=== PATIENT | female | born 1995 | race Caucasian/White ===

== ENCOUNTER 2019-10-31 18:57 | Observation (INO) | payer OTHER, SELFPAY ==
[2019-10-31 19:17] VITALS: BP 108/66; PULSE 89
[2019-10-31 19:30] VITALS: TEMP 37.7
[2019-10-31] MEDS: DEXTROSE 5%/LACTATED RINGERS 1,000 ML 999 ML IV CONT (19:58)
[2019-10-31] MEDS: FAMOTIDINE 20 MG/2 ML VIAL IV PUSH (19:59)
[2019-10-31 20:03] LABS: Basophils Percent Auto 0.2 % (0.2-1.2); Eosinophils Absolute Auto 0.2 K/mm3 (0-0.3); Eosinophils Percent Auto 2.7 % (0-4.4); Hematocrit 27.4 % (37.0-47.0); Hemoglobin 8.8 g/dL (12.0-15.0); Immature Granulocyte Absolute 0.07 K/mm3 (0.00-0.031); Immature Granulocyte Percent A 0.9 % (0-0.5); Lymphocytes Absolute Auto 1.42 K/mm3 (0.9-3.2); Lymphocytes Percent Auto 17.3 % (18.3-44.2); Mean Corpuscular HGB Conc 32.1 g/dl (32-36); Mean Corpuscular Volume 87.3 fl (80-100); Mean Platelet Volume 9.9 fl (7.4-10.4); Monocytes Absolute Auto 1.1 K/mm3 (0.1-0.6); Monocytes Percent Auto 13.1 % (2.6-8.5); Neutrophils Absolute Auto 5.4 K/mm3 (1.3-6.7); Neutrophils Percent Auto 65.8 % (45.5-73.1); Platelet Count Result 185 k/mm3 (150-375); Red Blood Count 3.14 M/mm3 (4.2-5.4); Red Cell Distribution Width 13.2 % (11.5-14.5); White Blood Count 8.2 K/mm3 (4.5-10.0)
[2019-10-31] MEDS: PROMETHAZINE HCL 25 MG/ML AMPUL 12.5 MG IV PUSH (20:03)
[2019-10-31 20:20] LABS: Add Urine Microscopic? YES; Amorphous Sediment Urine Few; Appearance Urine Cloudy (Clear); Bacteria Urine Trace /hpf; Bilirubin Urine Negative (Negative); Blood Urine Negative (Negative); Color Urine Yellow (Yellow); Glucose Urine UA Negative (Negative); Ketones Urine Negative (Negative); Leukocyte Esterase Ur 3+ LEU/UL (Negative); Mucus Urine Rare /lpf; Nitrate Urine Negative (Negative); Protein Urine Negative (Negative); RBC Urine 0-2 /hpf (0-2); Specific Grav Ur 1.009 (1.001-1.035); Squamous Epithelial Cell Urine Many /hpf (Few); Urobilinogen Urine Negative mg/dL (<2.0)
--- NOTE | 2019-11-03 08:02 | P.PNOB_ITS ---
OB - Triage/Final Diagnosis Visit Information Date of evaluation: 10/31/19 Reason for evaluation: other (nausea and vomiting) Evaluation Laboratory results: Laboratory Tests 10/31/19 10/31/19 19:46 19:46 WBC 8.2 RBC 3.14 L Hgb 8.8 L Hct 27.4 L MCV 87.3 MCH 28.0 MCHC 32.1 RDW 13.2 Plt Count 185 MPV 9.9 Immature Gran % (Auto) 0.9 H Neut % (Auto) 65.8 Lymph % (Auto) 17.3 L [place] % (Auto) 13.1 H Eos % (Auto) 2.7 Baso % (Auto) 0.2 Lymph # (Auto) 1.42 [place] # (Auto) 1.1 H Eos # (Auto) 0.2 Baso # (Auto) 0.0 Abs Immat Gran (auto) 0.07 H Absolute Neuts (auto) 5.4 Absolute Nucleated RBC 0.0 Nucleated RBC % 0.0 Urine Color Yellow Urine Appearance Cloudy H Urine pH 7.0 Ur Specific [place] 1.009 Urine Protein Negative Urine Glucose (UA) Negative Urine Ketones Negative Ur Blood (Man) Negative Urine Nitrate Negative Urine Bilirubin Negative Urine Urobilinogen Negative Leukocyte Esterase Rfl 3+ H Urine RBC 0-2 Urine WBC 10-15 H Ur Squamous Epith Cells Many H Amorphous Sediment Few H Urine Bacteria Trace Hyaline Casts 1-2 Urine Mucus Rare
== END 2019-10-31 21:30 | disposition home or self-care (01) ==
PROVIDERS: Advanced Practice Midwife; Admitting Provider Obstetrics & Gynecology; Visit Provider Obstetrics & Gynecology
DX: O21.2 Late vomiting of pregnancy (principal); Z3A.33 33 weeks gestation of pregnancy
CPT/HCPCS: 36415; 81001; 85025; 87077; 87086; 87088; 87186; 96374; 96375; G0378; G0379; J2550; J7121

== ENCOUNTER 2019-11-19 11:34 | Outpatient (CLI) | payer OTHER, SELFPAY ==
[2019-11-19 12:18] VITALS: BP 103/68; PULSE 80
--- NOTE | 2019-11-19 12:46 | PC.NURSE ---
1134-Pt was sent over from the office for possible leaking of fluid for the last couple days.
--- NOTE | 2019-11-19 12:47 | PC.NURSE ---
1220-Dylan.Erika CNM called, informed ROM plus was negative and NST was reactive. Orders received to discharge pt home.
== END 2019-11-19 12:35 | disposition home or self-care (01) ==
LOC: ANHOBOP 12:32
PROVIDERS: Visit Provider Obstetrics & Gynecology
DX: O41.8X90 Other specified disorders of amniotic fluid and membranes, unspecified trimester, not applicable or unspecified (principal)
CPT/HCPCS: 59025; 84112

== ENCOUNTER 2019-11-28 19:50 | Observation (INO) | payer OTHER, SELFPAY ==
[2019-11-29] MEDS: CYCLOBENZAPRINE HCL 10 MG TABLET PO (01:35)
--- NOTE | 2019-11-30 16:07 | PM.OBTRLD ---
OB - Triage/Final Diagnosis Visit Information Date of evaluation: 11/28/19 Reason for evaluation: threatened labor
== END 2019-11-29 01:45 | disposition home or self-care (01) ==
PROVIDERS: Admitting Provider Obstetrics & Gynecology; Visit Provider Obstetrics & Gynecology
DX: O47.9 False labor, unspecified (principal); Z3A.00 Weeks of gestation of pregnancy not specified
CPT/HCPCS: A9270; G0378; G0379

== ENCOUNTER 2019-12-07 16:49 | Inpatient (IN) | payer OTHER, SELFPAY ==
[2019-12-07] VITALS (25 sets, daily range): BP systolic 100–140; BP diastolic 48–93; PULSE 82–154; TEMP 37.2; O2SAT 100; BMI 25.7
--- NOTE | 2019-12-07 18:25 | WPDANESEPP ---
Anes - Eval Pre Procedure Procedure: labor epidural Date/Time: 12/07/19 18:25 Surgeon: Hal Preop Diagnosis: Abd pain with contractions Pre Op Diagnosis: Contractions Patient Data Age: 24 Gender: F Height: Weight: Allergies Allergy/AdvReac Type Severity Reaction Status Date / Time Penicillins Allergy Hives Verified 11/15/19 12:39 Home Medications Medication Instructions Recorded Confirmed Type PNV cmb#95-ferrous fumarate-FA 1 tablet PO DAILY 11/15/19 11/15/19 History [] ferrous sulfate [Iron (ferrous 325 mg PO DAILY 11/15/19 11/15/19 History sulfate)] Patient hx anesthesia problems: none Family hx anesthesia problems: none PMFSH Past Medical History Medical History Asthma Over weight Family History Family History Father Blindness due to degeneration of eye Mother High cholesterol Ovarian cyst Hypertension Diabetes mellitus Congenital heart disease Colon cancer Cervical cancer Anemia Asthma Grandparent High cholesterol Hypertension Congenital heart disease Colon cancer Asthma Social History Social History Substance use: never Gender identity (if verbalized by the patient): Female Spiritual care concerns: No Exam Day of Procedure 12/07/19 18:25 Patient weight: overweight Airway: Mallampati scale class II Neurological: alert and oriented
[2019-12-07 18:49] LABS: Basophils Percent Auto 0.4 % (0.2-1.2); Eosinophils Absolute Auto 0.3 K/mm3 (0-0.3); Eosinophils Percent Auto 3.8 % (0-4.4); Hematocrit 28.8 % (37.0-47.0); Immature Granulocyte Absolute 0.13 K/mm3 (0.00-0.031); Immature Granulocyte Percent A 1.5 % (0-0.5); Lymphocytes Absolute Auto 1.24 K/mm3 (0.9-3.2); Lymphocytes Percent Auto 13.9 % (18.3-44.2); Mean Corpuscular HGB Conc 31.3 g/dl (32-36); Mean Corpuscular Hemoglobin 25.3 pg (26-34); Mean Corpuscular Volume 80.9 fl (80-100); Mean Platelet Volume 9.8 fl (7.4-10.4); Monocytes Percent Auto 11.4 % (2.6-8.5); Neutrophils Absolute Auto 6.2 K/mm3 (1.3-6.7); Platelet Count Result 206 k/mm3 (150-375); Red Blood Count 3.56 M/mm3 (4.2-5.4); Red Cell Distribution Width 16.4 % (11.5-14.5)
--- NOTE | 2019-12-07 18:53 | LDADM ---
This patient, Tiana Newton, was admitted to Labor/Delivery/Recovery 104 on 12/07/19 at 16:49. Plans for labor, pain management and were discussed with patient. Patient/family oriented to hospital policies and general routines including ID bracelet, bed and alarms, visiting hours, pain management, procedures, bathroom and other care routines, personal items, smoking policy, room service/diet and guest tray routines, security routines, and visiting hours. Patient/Family are encouraged to report perceived risks to care and to ask questions if they do not understand what they are told or what they should do. See OBIX for further documentation.
[2019-12-07] MEDS: LACTATED RINGERS 1,000 ML 125 ML IV CONT ×2 (19:10→21:15)
[2019-12-08] VITALS (32 sets, daily range): BP systolic 101–123; BP diastolic 47–86; PULSE 66–137; RESP 16–18; TEMP 36.6–37.2; O2SAT 99–100
[2019-12-08] MEDS: LACTATED RINGERS 1,000 ML 125 ML IV CONT
[2019-12-08] MEDS: OXYTOCIN 30 UNITS/NS 500 ML 30 UNITS/500 ML BAG IV CONT (01:46)
[2019-12-08] MEDS: ONDANSETRON INJ 4 MG/2 ML VIAL IV PUSH (01:50)
[2019-12-08] MEDS: ACETAMINOPHEN 500 MG TABLET 1000 MG PO (01:50)
--- NOTE | 2019-12-08 03:56 | WPDOBADMIT ---
Obstetrics - Admit Note Admission Note: 24 y/o here in spontaneous labor. record reviewed. No pertinent additions to the history and/or any subsequent changes in the physical findings that are not consistent with the expected course of the were found. Additions to the history and/or subsequent changes in the physical findings follow. None.
--- NOTE | 2019-12-08 03:56 | PM.OBPRVD ---
OB - Delivery Note Procedure Delivery date: 12/08/19 Induction method: none Delivery augmentation: rupture of membranes Delivery monitor: external FHT and external uterine Route of delivery: Episiotomy description: None Laceration description: None Estimated blood loss (mL): 54 Anesthesia type: Epidural [place] Baby Date of : 12/08/19 Time of : 03:43 Weeks of gestation at delivery: 38 Infant gender: Female Weight (pounds): 8 Weight (ounces): 1 presentation: vertex position: Left Occiput Anterior Placenta delivery description: Spontaneous score one minute: 8 score five minutes: 9 Narrative: Mother and baby in stable condition. Cord gasses collected and handed off to staff.
[2019-12-08] MEDS: OXYTOCIN 30 UNITS/NS 500 ML 30 UNITS/500 ML BAG 125 UNITS IV CONT (04:25)
--- NOTE | 2019-12-08 07:34 | PC.NURSE ---
0632-Patient transferred to post room #288 via wheelchair. Support person present. Oriented to unit, room, information board, rooming in, admission packet and security measures. Patient verbalizes understanding.
[2019-12-08] MEDS: IBUPROFEN 600 MG TABLET PO ×2 (09:07→16:15)
[2019-12-08] MEDS: MULTIVIT/MIN/PREN/FOL AC/IRON TABLET 1 TAB PO (09:07)
[2019-12-08] MEDS: DOCUSATE SODIUM 100 MG CAPSULE PO ×2 (09:10→16:16)
[2019-12-08] MEDS: POLYSACCHARIDE IRON COMPLEX 150 MG CAPSULE PO ×2 (09:10→16:16)
[2019-12-09] MEDS: IBUPROFEN 600 MG TABLET PO ×2 (02:08→08:39)
[2019-12-09 05:09] LABS: Hematocrit 27.6 % (37.0-47.0); Hemoglobin 8.4 g/dL (12.0-15.0)
[2019-12-09 08:00] VITALS: BP 112/77; PULSE 63; RESP 16; TEMP 36.9; O2SAT 99
[2019-12-09] MEDS: POLYSACCHARIDE IRON COMPLEX 150 MG CAPSULE PO (08:37)
[2019-12-09] MEDS: MULTIVIT/MIN/PREN/FOL AC/IRON TABLET 1 TAB PO (08:37)
[2019-12-09] MEDS: DOCUSATE SODIUM 100 MG CAPSULE PO (08:37)
--- NOTE | 2019-12-09 09:05 | PM.OBPNVD ---
OB - PN: Subj Subjective Date/time seen: 12/09/19 09:05 Patient comments: no complaints, pain well controlled and other (Lochia similar to menses) [place] baby status: doing well OB - PN: Obj Data Labs CBC & Chem 7: 12/09/19 04:14 Labs: Laboratory Results - last 24 hr 12/09/19 04:14 Hgb 8.4 L Hct 27.6 L OB - PN A/P Plan day: 1 (s/p vaginal delivery, doing well) Plan: routine care and discharge home (Follow up in 4 weeks) Time Spent With Patient Time: Total time spent is greater than 50% in coordination of care (as documented) at patient's floor/unit and/or counseling patient: Time with patient: less than 15 minutes Exam Const: General: no acute distress GI: Inspection: other (Fundus firm and nontender at umbilicus) GI Palp: Yes Soft to palpation and No Tenderness to palpation present (GI) Extrem: General: no edema
[2019-12-09] MEDS: ACETAMINOPHEN 325 MG TABLET 650 MG PO (11:11)
--- NOTE | 2019-12-09 11:16 | PC.NURSE ---
Patient viewed the discharge video Mother & Baby Care, The First Two Weeks . Patient was given the opportunity and encouraged to ask questions. Patient verbalized understanding of information shared and has been given the mother/baby guide for home reference.
[2019-12-10 09:14] LABS: Rapid Plasma Reagin Non-Reactive (NonReactive)
--- NOTE | 2019-12-28 12:08 | P.DS_ITS ---
DS: Admitting Diagnosis Admitting Diagnosis Admitting Diagnosis: Encounter for supervision of normal , unspecified, third trimester OB - DS: Summary OB Procedures : None OB Procedures Intrapartum: Spontaneous Vag Delivery OB Procedures: : None Time Spent with Patient Time attestation: Total time spent providing and/or coordinating discharge services: Discharge Plan Discharge Attending physician on discharge: Hazel Hong Consulting providers: Lana James Discharging Clinician: Debi Maher Patient Disposition: Home, Self-Care Activity: may shower and pelvic rest Diet: regular Discharge Instructions: Education: Mom and Baby Guide Given to: Mother Follow-Up: Call your delivering provider's office for an appointment to be seen in: 4 Weeks Mom and baby should come to the [facility] for the follow-up appointment. Appointment Date/Time: Tuesday, December 10, 2019 at 9:00 am What to expect at your follow-up visit: Blood Pressure Check Physical Assessment Call [phone] if you are unable to keep your appointment time. BREAST CARE: 1. Wear a snug supportive bra. 2. For engorgement discomfort: Bottle Feeding: A. May apply ice packs EPISIOTOMY/PERINEAL CARE: 1. Until bleeding stops, use your teddy bottle after urinating 2. Change your pad frequently throughout the day 3. You may take sitz baths several times a day (fill your bathtub with warm water and soak for 20 minutes.) Do NOT bathe in the water 4. No tub baths until seen by your physician - You may shower ACTIVITY: 1. Rest as much as possible. 2. Do not exercise or lift anything heavier than your baby (such as laundry or other children.) 3. Avoid stairs or driving as much as possible. 4. Do not put anything into the vagina. No douching, tampons, or sexual activity until seen by physician. NOTIFY PHYSICIAN IF YOU HAVE ANY QUESTIONS OR IF ANY OF THE FOLLOWING SYMPTOMS OCCUR: 1. If your perineum becomes red, swollen, or more painful than what you have experienced in the hospital. 2. If your vaginal bleeding becomes foul smelling. 3. If your vaginal bleeding becomes more heavy than a period or if your bleeding changes from pink to bright red. However, you may pass an occasional walnut- sized clot once or twice for the first week . 4. If you experience a sharp, shooting pain in you calves. 5. If you discover a hard, reddened area on your breast or if you experience flu-like symptoms. DIET: 1. Eat regular, well-balanced meals. 2. Drink plenty of fluids daily. Stand Alone Forms: General Discharge Information Follow-up/Referrals: Lana James CNM [Certified Nurse Marketing Information Manager] - 4 Weeks Discharge Medications: New ibuprofen 600 mg Tablet 600 mg PO Q6H PRN (Reason: Cramping) Qty: 60 RF: 0 Continued ferrous sulfate [Iron (ferrous sulfate)] 325 mg (65 mg iron) Tablet 325 mg PO DAILY RF: 0 PNV cmb#95-ferrous fumarate-FA [] 28 mg iron- 800 mcg Tablet 1 tablet PO DAILY RF: 0 Date of admission: 12/07/19 16:49 Primary Care Provider: PHYSICIAN,CRACK OFF PERSON Admitting Provider: Hazel Hong Discharge Date/Time: 12/09/19 16:24 Attending physician on admission: Debi Maher
== END 2019-12-09 16:24 | disposition home or self-care (01) | DRG 807 ==
LOC: ANHLDR 18:40 → ANHOB2 12-08 15:25 → ANHLDR 12-11 09:07 → ANHOB2 12-11 09:07
PROVIDERS: Advanced Practice Midwife; Admitting Provider Obstetrics & Gynecology; Visit Provider Obstetrics & Gynecology
DX: O99.824 Streptococcus B carrier state complicating childbirth (principal); Z37.0 Single live birth; Z3A.38 38 weeks gestation of pregnancy
CPT/HCPCS: 36415; 85014; 85018; 85025; 86592; 86850; 86900; 86901; A9270; J1200; J2405; J2590; J2795; J3370; J7120

== ENCOUNTER 2021-02-03 12:25 | Emergency (ER) | payer OTHER, SELFPAY ==
[2021-02-03 12:33] VITALS: BP 111/59; PULSE 80; RESP 16; TEMP 36.8; O2SAT 100
[2021-02-03 12:42] VITALS: BP 104/68; PULSE 82; RESP 14; O2SAT 98
--- NOTE | 2021-02-03 13:26 | ED.GENADULT ---
HPI - General Adult General Chief complaint: Unspecified Stated complaint: Bulging blood vessel on buttock Time Seen by Provider: 02/03/21 12:39 Source: patient Mode of arrival: ambulatory Limitations: no limitations History of Present Illness HPI narrative: This is a 26 year old female that presents to the ER for varicose vein noted over the last week. Reports she noted a varicose vein on the right buttock that is painful. She notices it with prolonged standing. She is 17 weeks present currently. Her OB is Dr. Hong. She is feeling the baby move. Denies fever, pelvic cramping or vaginal bleeding. Related Data Home Medications Medication Instructions Recorded Confirmed PNV cmb#95-ferrous fumarate-FA 1 tablet PO DAILY 11/15/19 11/15/19 [] ferrous sulfate [Iron (ferrous 325 mg PO DAILY 11/15/19 11/15/19 sulfate)] Allergies Allergy/AdvReac Type Severity Reaction Status Date / Time Penicillins Allergy Severe HIVES Verified 02/03/21 12:43 Review of Systems Review of Systems: CONSTITUTIONAL: Denies fever SKIN: Denies rash All systems reviewed & are unremarkable except as noted in HPI and below PMFSH Past Medical History Medical History (Updated 02/03/21 @ 13:50 by Lorraine White PA-C) Asthma Over weight Family History Family History (System 12/12/19 @ 08:32 by Melina Bhakta) Father Blindness due to degeneration of eye Mother High cholesterol Ovarian cyst Hypertension Diabetes mellitus Congenital heart disease Colon cancer Cervical cancer Anemia Asthma Grandparent High cholesterol Hypertension Congenital heart disease Colon cancer Asthma Social History Social History (System 12/12/19 @ 08:32 by Melina Bhakta) Smoking status: Never smoker Substance use: never Gender identity (if verbalized by the patient): Female Spiritual care concerns: No Exam Narrative: GENERAL: Well-appearing, well-nourished, and in no acute distress. HEAD: Normocephalic, atraumatic. EYES: EOMI. CHEST: No respiratory distress. HEART: Regular rate ABDOMEN: Gravid EXTREMITIES: Normal range of motion. No edema or erythema. SKIN: Warm, dry, no rash. NEURO: No focal deficits. Alert and oriented x3. PSYCH: Normal mood and affect FEMALE GENITAL: A varicose vein is noted from the right labia majora to the right buttock Course Vital Signs Vital signs: Vital Signs Temperature 98.2 F 02/03/21 12:33 Pulse Rate 80 02/03/21 12:33 Respiratory Rate 16 02/03/21 12:33 Blood Pressure 111/59 L 02/03/21 12:33 Pulse Oximetry 100 02/03/21 12:33 Temperature 98.2 F 02/03/21 12:33 Pulse Rate 82 02/03/21 12:42 Respiratory Rate 14 02/03/21 12:42 Blood Pressure 104/68 02/03/21 12:42 Pulse Oximetry 98 02/03/21 12:42 Medical Decision Making MDM Narrative Medical decision making narrative: Patient presents to the emergency department for varicose vein noted over the last week. She is 17 weeks . Denies any other problems with the . No pelvic cramping or vaginal bleeding. She is feeling the baby move. I do note a varicose vein over the right labia majora into the right buttock after the patient stands for a couple of minutes. This is soft and nontender. No edema or erythema of the lower extremities. Spoke with Dr. Herring about patient and work-up who will follow-up in clinic. Patient is stable and felt appropriate for further outpatient evaluation. She was given warnings to return to the ER Vital Signs Vital Signs: Vital Signs Temperature 98.2 F 02/03/21 12:33 Pulse Rate 80 02/03/21 12:33 Respiratory Rate 16 02/03/21 12:33 Blood Pressure 111/59 L 02/03/21 12:33 Pulse Oximetry 100 02/03/21 12:33 Temperature 98.2 F 02/03/21 12:33 Pulse Rate 82 02/03/21 12:42 Respiratory Rate 14 02/03/21 12:42 Blood Pressure 104/68 02/03/21 12:42 Pulse Oximetry 98 02/03/21 12:42 Critical Ca
[2021-02-03 14:20] VITALS: BP 110/70; PULSE 80; RESP 20; O2SAT 97
== END 2021-02-03 14:20 | disposition home or self-care (01) ==
PROVIDERS: Emergency Provider Emergency Medicine
DX: O22.02 Varicose veins of lower extremity in pregnancy, second trimester (principal); Z3A.17 17 weeks gestation of pregnancy
CPT/HCPCS: 99281

== ENCOUNTER 2021-04-13 13:39 | Observation (INO) | payer OTHER, SELFPAY ==
[2021-04-13] VITALS (8 sets, daily range): BP systolic 94–111; BP diastolic 61–84; PULSE 73–90; TEMP 36.6; BMI 24.0
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
--- NOTE | 2021-04-13 13:59 | PC.NURSE ---
Pt to OB
--- NOTE | 2021-04-13 14:39 | OBADM ---
This patient, Tiana Newton, admitted to the OB room OB Post 116 for observation. Patient/family oriented to hospital policies and general routines including ID bracelet, bed and alarms, visiting hours, pain management, procedures, bathroom and other care routines, personal items, smoking policy, room service/diet, and visiting hours. Patient/Family are encouraged to report perceived risks to care and to ask questions if they do not understand what they are told or what they should do.
[2021-04-13] MEDS: NIFEdipine 10 MG CAPSULE PO (18:16)
[2021-04-13] MEDS: ACETAMINOPHEN 500 MG TABLET 1000 MG PO (18:38)
[2021-04-14 00:08] VITALS: BP 103/60; PULSE 66; RESP 18; TEMP 36.4
[2021-04-14 04:44] VITALS: BP 99/57; PULSE 72; RESP 18; TEMP 36.4
[2021-04-14 07:00] VITALS: TEMP 36.6
[2021-04-14 07:01] VITALS: BP 98/64; PULSE 70
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
== END 2021-04-14 08:20 | disposition home or self-care (01) ==
PROVIDERS: Admitting Provider Obstetrics & Gynecology; Visit Provider Obstetrics & Gynecology
DX: Z04.1 Encounter for examination and observation following transport accident (principal); Z3A.28 28 weeks gestation of pregnancy
CPT/HCPCS: 76815; A9270; G0378; G0379

== ENCOUNTER 2021-05-21 12:06 | Observation (INO) | payer OTHER, SELFPAY ==
--- NOTE | 2021-05-21 12:06 | OBADM ---
This patient, Tiana Newton, admitted to the OB room OB Post 113 for observation. Patient/family oriented to hospital policies and general routines including ID bracelet, bed and alarms, visiting hours, pain management, procedures, bathroom and other care routines, personal items, smoking policy, room service/diet, and visiting hours. Patient/Family are encouraged to report perceived risks to care and to ask questions if they do not understand what they are told or what they should do.
[2021-05-21 12:17] VITALS: BP 106/66; PULSE 91; RESP 20; TEMP 36.4
[2021-05-21 12:30] VITALS: BMI 24.9
[2021-05-21 14:03] LABS: Fetal Fibronectin Negative
[2021-05-21 14:19] LABS: Add Urine Microscopic? YES; Amorphous Sediment Urine Few; Appearance Urine Cloudy (Clear); Bacteria Urine 2+ /hpf; Bilirubin Urine Negative (Negative); Blood Urine Negative (Negative); Color Urine Yellow (Yellow); Glucose Urine UA Negative (Negative); Ketones Urine Negative (Negative); Leukocyte Esterase Ur 2+ LEU/UL (NEGATIVE); Mucus Urine Rare /lpf; Nitrate Urine Positive (Negative); Protein Urine Negative (Negative); Specific Grav Ur 1.009 (1.001-1.035); Squamous Epithelial Cell Urine Few /hpf (Few); Urobilinogen Urine Negative mg/dL (<2.0); WBC Urine 31-50 /hpf (0-3)
--- NOTE | 2021-06-07 09:22 | PM.OBTRLD ---
OB - Triage/Final Diagnosis Visit Information Comments/Additional reasons for admission: I have assessed the risk for this patient, Tiana Newton, and determined that she would benefit from observation care. Evaluation Laboratory results: Laboratory Tests 05/21/21 05/21/21 12:27 13:57 Urine Color Yellow Urine Appearance Cloudy H Urine pH 7.0 Ur Specific [place] 1.009 Urine Protein Negative Urine Glucose (UA) Negative Urine Ketones Negative Ur Blood (Man) Negative Urine Nitrate Positive Urine Bilirubin Negative Urine Urobilinogen Negative Ur Leukocyte Esterase 2+ H Urine RBC 6-10 H Urine WBC 31-50 H Ur Squamous Epith Cells Few Amorphous Sediment Few H Urine Bacteria 2+ H Urine Mucus Rare Fibronectin Negative Final Diagnosis (1) False labor: Code(s): O47.9 - False labor, unspecified Status: Acute
== END 2021-05-21 14:30 | disposition home or self-care (01) ==
PROVIDERS: Advanced Practice Midwife; Admitting Provider Obstetrics & Gynecology; Visit Provider Obstetrics & Gynecology
DX: O47.03 False labor before 37 completed weeks of gestation, third trimester (principal); Z3A.33 33 weeks gestation of pregnancy
CPT/HCPCS: 81001; 82731; 87077; 87086; 87088; 87186; G0378; G0379

== ENCOUNTER 2021-06-14 14:35 | Observation (INO) | payer OTHER, SELFPAY ==
[2021-06-14 18:15] VITALS: BP 104/81; PULSE 98
[2021-06-14 18:17] VITALS: RESP 20
--- NOTE | 2021-06-25 07:48 | PM.OBTRLD ---
OB - Triage/Final Diagnosis Visit Information Comments/Additional reasons for admission: I have assessed the risk for this patient, Tiana Newton, and determined that she would benefit from observation care. Final Diagnosis (1) False labor: Code(s): O47.9 - False labor, unspecified Status: Acute
== END 2021-06-14 18:20 | disposition home or self-care (01) ==
PROVIDERS: Admitting Provider Obstetrics & Gynecology; Visit Provider Obstetrics & Gynecology
DX: O47.03 False labor before 37 completed weeks of gestation, third trimester (principal); Z3A.36 36 weeks gestation of pregnancy
CPT/HCPCS: G0378; G0379

== ENCOUNTER 2021-06-14 23:57 | Inpatient (IN) | payer OTHER, SELFPAY ==
[2021-06-15] VITALS (150 sets, daily range): BP systolic 80–133; BP diastolic 48–91; PULSE 65–123; RESP 16–18; TEMP 36.3–37.2; O2SAT 96–100
--- OUTSIDE RECORDS SUMMARY | 2021-06-15 00:29 | XMS_ITS ---
:1995 Author Care Team Providers Name Role Phone Lana James Primary Care Provider Unavailable Allergies Code Code System Name Reaction Severity Status Onset Penicillins ? ? Active ? Medications Name Status Start Date Stop Date ? ? cephalexin 500 mg capsule Completed ? 2020 cephalexin 500 mg tablet Completed ? 021 Take 1 tablet every 6 hours by oral route. ciprofloxacin 500 mg tablet Completed 01/14/202101/19 TAKE 1 TABLET BY MOUTH EVERY 12 HOURS DIRECTED FOR 7 DAYS Flagyl 500 mg tablet Completed 08/27/2019 07/23/2020 take 1 tablet by oral route every 12 hours for 7 days fluconazole Completed ? 11/19/2019 fluconazole 150 mg tablet Completed ? 2020 iron Completed ? 05/13/2020 Junel FE 1.5/30 (28) 1.5 mg-30 Completed ? 07/13/2019 mcg (21)/75 mg (7) tablet Loestrin Fe / (28-Day) 1 mg-20 mcg (21)/75 mg (7) tablet Comp leted ? 04/03/2020 Take 1 tablet every day by oral route. Macrobid 100 mg capsule Completed ? 04/09/20 21 Take 1 capsule twice a day by oral route for 7 days. Medrol (Jabari) 4 mg tablets in a dose pack Completed ? 01/03/2020 Take 1 dose pk by oral route. metronidazole 0.75 % vaginal gel Completed 01/14/2021 02/12/2021 INSERT 1 APPLICATORFUL VAGINALLY ONCE DAILY nystatin 100,000 unit/gram topical ointment Completed ? 01/14/2021 APPLY TOPICALLY TO THE AFFECTED AREA(S)TWICE DAILY nystatin-triamcinolone 100,000 unit/gram-0.1 % topical ointment Unknown ? Not available APPLY TO THE AFFECTED AREA(S) BY TOPICAL ROUTE 2 TIMES PER
--- OUTSIDE RECORDS SUMMARY | 2021-06-15 00:29 | XMS_ITS | Encounter Summary ---
:1995 Author Reason for Visit OB visit 31w3d Assessment and Plan 1. Routine care Discussion Note: None recorded.Patient educational handouts: No information available. Plan of Care Reminders Provider Appointments Ob Routine Jamilah James CNM 06/18/2021 11:45AM Lab None ? ? recorded. Referral None ? ? recorded. Procedures None ? ? recorded. Surgeries None ? ? recorded. Imaging None ? ? recorded. Medications Name Start Date ? ? ondansetron HCl 4 mg tablet ? Take 1 tablet every 4-6 hours by oral route as needed . ? Medications Administered None recorded. Vitals Height Weight BMI Blood Pressure 5 ft 5 in 147 lbs 24.5 kg/m2 117/75 mm[Hg] Results Lab Results None recorded. Allergies Code Code System Name Reaction Severity Onset Penicillins ? ? ? Problems Name Status Onset Date Source ? Active 01/14/2021 ? Asthma in Active ? ? Procedures Date Name Performed by ?
--- OUTSIDE RECORDS SUMMARY | 2021-06-15 00:29 | XMS_ITS | Encounter Summary ---
:1995 Author Reason for Visit OB visit 29w3d Assessment and Plan 1. Routine care Discussion [...] ft 5 in 147 lbs 24.5 kg/m2 110/75 mm[Hg] Results Lab Results None recorded. Allergies Code Code System Name Reaction Severity Onset Penicillins ? ? ? Problems Name Status Onset Date Source ? Active 01/14/2021 ? Asthma in Active ? ? Procedures Date Name Performed by ?
--- OUTSIDE RECORDS SUMMARY | 2021-06-15 00:30 | XMS_ITS | Encounter Summary ---
:1995 Author Reason for Visit OB visit 27w3d Assessment and Plan 1. Routine care Discussion [...] BMI Blood Pressure 5 ft 5 in 144 lbs 24 kg/m2 122/80 mm[Hg] Results Lab Results None recorded. Allergies Code Code System Name Reaction Severity Onset Penicillins ? ? ? Problems Name Status Onset Date Source ? Active 01/14/2021 ? Asthma in Active ? ? Procedures Date Name Performed by ?
[2021-06-15] MEDS: LACTATED RINGERS 1,000 ML 125 ML IV CONT ×2 (00:40→03:40)
[2021-06-15 00:52] LABS: Basophils Absolute Auto 0.1 K/mm3 (0.0-0.1); Basophils Percent Auto 0.5 % (0.2-1.2); Eosinophils Absolute Auto 0.3 K/mm3 (0-0.3); Eosinophils Percent Auto 2.6 % (0-4.4); Hematocrit 32.5 % (37.0-47.0); Hemoglobin 10.5 g/dL (12.0-15.0); Immature Granulocyte Absolute 0.16 K/mm3 (0.00-0.031); Immature Granulocyte Percent A 1.2 % (0-0.5); Lymphocytes Absolute Auto 1.71 K/mm3 (0.9-3.2); Lymphocytes Percent Auto 12.8 % (18.3-44.2); Mean Corpuscular HGB Conc 32.3 g/dl (32-36); Mean Corpuscular Hemoglobin 26.5 pg (26-34); Mean Corpuscular Volume 82.1 fl (80-100); Mean Platelet Volume 10.3 fl (7.4-10.4); Monocytes Absolute Auto 1.5 K/mm3 (0.1-0.6); Monocytes Percent Auto 11.3 % (2.6-8.5); Neutrophils Absolute Auto 9.6 K/mm3 (1.3-6.7); Neutrophils Percent Auto 71.6 % (45.5-73.1); Platelet Count Result 155 k/mm3 (150-375); Red Blood Count 3.96 M/mm3 (4.2-5.4); Red Cell Distribution Width 13.9 % (11.5-14.5); White Blood Count 13.3 K/mm3 (4.5-10.0)
--- NOTE | 2021-06-15 01:25 | WPDANESEPP ---
Anes - Eval Pre Procedure Procedure: labor epidural Date/Time: 06/15/21 01:25 Surgeon: dar Preop Diagnosis: pain during labor Pre Op Diagnosis: Contractions Patient Data Age: 26 Gender: F Height: Weight: Last Vital Signs Pulse 79 06/15/21 01:24 BP 104/61 06/15/21 01:24 Pulse Ox 100 06/15/21 01:22 Allergies Allergy/AdvReac Type Severity Reaction Status Date / Time Penicillins Allergy Severe HIVES Verified 06/15/21 01:14 Home Medications Medication Instructions Recorded Confirmed Type PNV cmb#95-ferrous fumarate-FA 1 tablet PO DAILY 11/15/19 06/05/21 History [] Laboratory Tests 06/15/21 06/15/21 00:30 00:30 WBC 13.3 K/mm3 H K/mm3 (4.5-10.0) RBC 3.96 M/mm3 L M/mm3 (4.2-5.4) Hgb 10.5 g/dL L g/dL (12.0-15.0) Hct 32.5 % L % (37.0-47.0) MCV 82.1 fl fl (80-100) MCH 26.5 pg pg (26-34) MCHC 32.3 g/dl g/dl (32-36) RDW 13.9 % % (11.5-14.5) Plt Count 155 k/mm3 k/mm3 (150-375) MPV 10.3 fl fl (7.4-10.4) Immature Gran % (Auto) 1.2 % H % (0-0.5) Neut % (Auto) 71.6 % % (45.5-73.1) Lymph % (Auto) 12.8 % L % (18.3-44.2) Tucker % (Auto) 11.3 % H % (2.6-8.5) Eos % (Auto) 2.6 % % (0-4.4) Baso % (Auto) 0.5 % % (0.2-1.2) Lymph # (Auto) 1.71 K/mm3 K/mm3 (0.9-3.2) Tucker # (Auto) 1.5 K/mm3 H K/mm3 (0.1-0.6) Eos # (Auto) 0.3 K/mm3 K/mm3 (0-0.3) Baso # (Auto) 0.1 K/mm3 K/mm3 (0.0-0.1) Abs Immat Gran (auto) 0.16 K/mm3 H K/mm3 (0.00-0.031) Absolute Neuts (auto) 9.6 K/mm3 H K/mm3 (1.3-6.7) Absolute Nucleated RBC 0.0 K/mm3 K/mm3 (0.0-0.012) Nucleated RBC % 0.0 % % (0.0-0.2) RPR Pending Patient hx anesthesia problems: none Family hx anesthesia problems: none Results Review: All pre-operative results and documents have been reviewed as part of the pre-operative evaluation. [facility] Past Medical History Medical History Asthma Over weight Family History Family History Father Blindness due to degeneration of eye Mother High cholesterol Ovarian cyst Hypertension Diabetes mellitus Congenital heart disease Colon cancer Cervical cancer Anemia Asthma Grandparent High cholesterol Hypertension Congenital heart disease Colon cancer Asthma Social History Social History Smoking status: Never smoker Substance use: never Gender identity (if verbalized by the patient): Female Spiritual care concerns: No Exam Day of Procedure 06/15/21 01:25
--- NOTE | 2021-06-15 02:13 | LDADM ---
This patient, Tiana Newton, was admitted to Labor/Delivery/Recovery 107 on 06/14/21 at 23:57. Plans for labor, pain management and were discussed with patient. Patient/family oriented to hospital policies and general routines including ID bracelet, bed and alarms, visiting hours, pain management, procedures, bathroom and other care routines, personal items, smoking policy, room service/diet and guest tray routines, security routines, and visiting hours. Patient/Family are encouraged to report perceived risks to care and to ask questions if they do not understand what they are told or what they should do. See OBIX for further documentation.
[2021-06-15] MEDS: ONDANSETRON INJ 4 MG/2 ML VIAL IV PUSH ×2 (02:43→08:29)
[2021-06-15] MEDS: OXYTOCIN 30 UNITS/NS 500 ML 30 UNITS/500 ML BAG IV CONT (06:00)
--- NOTE | 2021-06-15 08:01 | WPDOBADMIT ---
Obstetrics - Admit Note Admission Note: 26 y/o here in spontaneous labor. record reviewed. No pertinent additions to the history and/or any subsequent changes in the physical findings that are not consistent with the expected course of the were found. Additions to the history and/or subsequent changes in the physical findings follow. None.
--- NOTE | 2021-06-15 09:38 | PM.OBPRVD ---
OB - Delivery Note Procedure Delivery date: 06/15/21 Procedure: Intrapartal events: None Induction method: none Delivery monitor: none Route of delivery: Episiotomy description: None Laceration Description: None Quantitative Blood Loss (ml): 221 Baby Date of : 06/15/21 Time of : 09:22 Weeks of gestation at delivery: 37 Weight (pounds): 7 Weight (ounces): 4 presentation: vertex position: Left Occiput Anterior Placenta delivery description: Spontaneous cord vessel description: Delayed Cord Clamping Narrative: Mother and baby in stable condition. Cord segment given to staff for cord blood collection.
[2021-06-15] MEDS: OXYTOCIN 30 UNITS/NS 500 ML 30 UNITS/500 ML BAG 125 UNITS IV CONT (09:56)
[2021-06-15 11:21] LABS: Rapid Plasma Reagin Non-Reactive (NonReactive)
[2021-06-15] MEDS: WITCH HAZEL 40 PADS 1 PAD TOPICAL (11:48)
[2021-06-15] MEDS: BENZOCAINE 20% AER SPR (*SP) 56 GM CAN 1 SPRAY TOPICAL (11:48)
--- NOTE | 2021-06-15 12:47 | PC.NURSE ---
1210-Patient transferred to post room #286 via wheelchair. Support person present. Oriented to unit, room, information board, rooming in, admission packet and security measures. Patient verbalizes understanding.
[2021-06-15] MEDS: IBUPROFEN 600 MG TABLET PO ×2 (14:23→20:15)
[2021-06-16 03:59] VITALS: BP 107/52; PULSE 62; RESP 18; TEMP 36.8; O2SAT 100
[2021-06-16 05:18] LABS: Hematocrit 29.9 % (37.0-47.0); Hemoglobin 9.3 g/dL (12.0-15.0)
[2021-06-16] MEDS: DOCUSATE SODIUM 100 MG CAPSULE PO (06:35)
[2021-06-16] MEDS: SIMETHICONE 80 MG TAB.CHEW PO (06:35)
[2021-06-16] MEDS: IBUPROFEN 600 MG TABLET PO (06:36)
--- NOTE | 2021-06-16 08:13 | PM.OBPNVD ---
OB - PN: Subj Subjective Date/time seen: 06/16/21 08:13 Patient comments: no complaints baby status: doing well OB - PN: Obj Data Labs CBC & Chem 7: 06/16/21 03:25 Labs: Laboratory Results - last 24 hr 06/15/21 06/16/21 00:30 03:25 Hgb 9.3 L Hct 29.9 L RPR Non-reactive OB - PN A/P Plan day: 2 Plan: routine care and discharge home (RTC in 4 weeks) Time Spent With Patient Time: Total time spent is greater than 50% in coordination of care (as documented) at patient's floor/unit and/or counseling patient: Time with patient: less than 15 minutes Review of Systems Review of Systems: All systems reviewed & are unremarkable except as noted in HPI and below Exam Narrative: Fundus firm and vaginal flow controlled. No lower ext redness, warmth, or edema. Negative homans. Const: General: comfortable Chest: Breast/axilla inspection: normal inspection of the breasts Resp: Effort & Inspection: normal respiratory effort Cardio: Rate: regular rate GI: GI Palp: Yes Soft to palpation Psych: Appearance: grossly normal Affect: normal affect Attitude: cooperative Thought content: Yes Normal thought content present Judgement: Good judgement present (Psych)
--- NOTE | 2021-06-16 08:15 | P.DS_ITS ---
DS: Admitting Diagnosis Discharge Date 06/16/21 Admitting Diagnosis Labor OB - DS: Summary OB Procedures : None OB Procedures Intrapartum: Spontaneous Vag Delivery OB Procedures: : None Time Spent with Patient Time attestation: Total time spent providing and/or coordinating discharge services: DS: Data Data Completed and Pending Labs on day of discharge: Labs from last 24 hours 06/16/21 06/15/21 03:25 00:30 Hgb 9.3 L Hct 29.9 L RPR Non-reactive Discharge Plan Discharge Attending physician on discharge: Lana James Discharging Clinician: Lana James Patient Disposition: Home, Self-Care Activity: pelvic rest Diet: as tolerated Patient Instructions: Antibiotic Form Stand Alone Forms: General Discharge Information Follow-up/Referrals: Lana James CNM [Certified Nurse Fern Gatherer] - Discharge Medications: Continued PNV cmb#95-ferrous fumarate-FA [] 28 mg iron- 800 mcg Tablet 1 tablet PO DAILY RF: 0 Date of admission: 06/14/21 23:57 Primary Care Provider: PHYSICIAN,[employer] Admitting Provider: Hazel Hong Attending physician on admission: Hazel Hong Condition: Stable
[2021-06-16 08:40] VITALS: BP 111/71; PULSE 74; RESP 18; TEMP 37.2; O2SAT 99
[2021-06-16] MEDS: POLYSACCHARIDE IRON COMPLEX 150 MG CAPSULE PO (09:26)
== END 2021-06-16 10:40 | disposition home or self-care (01) | DRG 560 ==
LOC: ANHLDR 06-15 00:35 → ANHOB2 06-15 14:13 → ANHLDR 06-16 15:58 → ANHOB2 06-16 15:58
PROVIDERS: Advanced Practice Midwife; Admitting Provider Obstetrics & Gynecology; Visit Provider Obstetrics & Gynecology
DX: O80 Encounter for full-term uncomplicated delivery (principal); Z3A.37 37 weeks gestation of pregnancy; Z37.0 Single live birth
CPT/HCPCS: 36415; 85014; 85018; 85025; 86592; 86850; 86900; 86901; A9270; G0378; G0379; J2405; J2590; J2795; J7120

== ENCOUNTER 2021-11-12 01:24 | Emergency (ER) | payer OTHER, SELFPAY ==
[2021-11-12 01:44] VITALS: BP 119/77; PULSE 77; RESP 16; TEMP 36.3; O2SAT 100
[2021-11-12 02:51] VITALS: BP 106/72; PULSE 71; RESP 17; O2SAT 99
--- NOTE | 2021-11-12 02:53 | ED.ABDPAIN ---
HPI - Abdominal Pain General Chief Complaint: Abdominal Pain Stated Complaint: abd pain, cyst lt ovary Time Seen by Provider: 11/12/21 02:51 History of Present Illness HPI narrative: Patient is a 26-year-old female complaining lower abdominal pain accompanied by dysuria nausea that started 5 hours ago. Patient states that she has a history of frequent UTIs and this is similar to it. Patient denies any vomiting, diarrhea, fever or chills. Patient denies any vaginal bleeding or discharge Related Data Home Medications Medication Instructions Recorded Confirmed vit no.95-ferrous 1 tablet PO DAILY 11/15/19 06/05/21 fumarate 28 mg-folic acid 800 mcg tablet () Allergies Allergy/AdvReac Type Severity Reaction Status Date / Time Penicillins Allergy Severe HIVES Verified 06/15/21 01:14 Review of Systems Review of Systems: All systems reviewed & are unremarkable except as noted in HPI and below Constitutional: Constitutional: Denies body ache(s), Denies chills, Denies excessive sweating, Denies fatigue, Denies fever(s), Denies headache(s), Denies lethargy, Denies malaise, Denies weakness and Denies weight loss Eyes: Eyes: Denies blurry vision, Denies change in vision and Denies loss of vision ENT: Denies dizziness, Denies ear discharge, Denies headache(s), Denies lip swelling, Denies epistaxis, Denies nasal congestion, Denies neck pain, Denies throat swelling and Denies tongue swelling Cardiovascular: Cardiovascular: Denies chest pain, Denies chest pain at rest, Denies chest pain with activity, Denies diaphoresis, Denies rapid heart rate, Denies edema, Denies irregular heart rhythm, Denies lightheadedness, Denies palpitations, Denies dyspnea and Denies dyspnea on exertion Respiratory: Respiratory: Denies chest congestion, Denies cough, Denies hemoptysis, Denies dyspnea and Denies dyspnea on exertion Gastrointestinal: Gastrointestinal: Denies abdominal pain, Denies melena, Denies hematochezia, Denies diarrhea, Denies vomiting and Denies hematemesis Musculoskeletal: Musculoskeletal: Denies abnormal gait, Denies deformity, Denies joint swelling, Denies limited range of motion, Denies neck pain and Denies numbness Neurologic: Denies Abnormal speech present, Denies abnormal gait, Denies confusion, Denies dizziness, Denies headache(s), Denies focal weakness, Denies loss of vision, Denies numbness, Denies Other visual disturbances, Denies Sensory deficit (Neuro) and Denies weakness Psychiatric: Psychiatric: Denies confusion, Denies depression, Denies auditory hallucinations, Denies homicidal ideation and Denies suicidal ideation Endocrine: Endocrine: Denies cold intolerance, Denies excessive sweating, Denies fatigue, Denies heat intolerance and Denies palpitations Hematologic/Lymphatic: Hematologic/Lymphatic: Denies easy bleeding and Denies easy bruising Allergic/Immunologic: Allergic/Immunologic: Denies lip swelling, Denies throat swelling and Denies tongue swelling PMFSH Past Medical History Medical History Asthma Over weight Family History Family History Father Blindness due to degeneration of eye Mother High cholesterol Ovarian cyst Hypertension Diabetes mellitus Congenital heart disease Colon cancer Cervical cancer Anemia Asthma Grandparent High cholesterol Hypertension Congenital heart disease Colon cancer Asthma Social History Social History Smoking status: Never smoker Second hand tobacco smoke exposure: No Substance use: never Gender identity (if verbalized by the patient): Female Spiritual care concerns: No Exam Const: General: cooperative, healthy appearing, comfortable, no acute distress, well developed, alert and awake; No confusion Orientation/consciousness: oriented to person, o
[2021-11-12 03:16] LABS: Add Urine Microscopic? YES; Appearance Urine Clear (Clear); Bilirubin Urine Negative (Negative); Blood Urine 3+ (Negative); Color Urine Yellow (Yellow); Glucose Urine UA Negative (Negative); Ketones Urine Negative (Negative); Leukocyte Esterase Ur Negative LEU/UL (Negative); Nitrate Urine Positive (Negative); Protein Urine Negative (Negative); Specific Grav Ur >= 1.030 (1.001-1.035); Urobilinogen Urine 0.2 mg/dL (<2.0)
[2021-11-12 03:30] LABS: Bacteria Urine Trace /hpf; Mucus Urine Rare /lpf; Squamous Epithelial Cell Urine Many /hpf (Few); WBC Urine 16-20 /hpf
[2021-11-12 04:08] VITALS: BP 105/78; PULSE 73; RESP 17; O2SAT 100
[2021-11-12 04:29] LABS: Lipase 133 U/L (23-300)
== END 2021-11-12 04:10 | disposition home or self-care (01) ==
PROVIDERS: Emergency Provider Emergency Medicine
DX: N39.0 Urinary tract infection, site not specified (principal); J45.909 Unspecified asthma, uncomplicated; E66.3 Overweight; Z68.21 Body mass index [BMI] 21.0-21.9, adult
CPT/HCPCS: 36415; 81001; 81025; 83690; 87077; 87086; 87088; 87186; 96372; 99283

== ENCOUNTER 2021-12-09 16:00 | Outpatient (RCR) | payer OTHER, SELFPAY ==
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
--- NOTE | 2021-11-30 13:31 | PCPTNOTE ---
Patient did not show up for scheduled appointment this date; called patient who answered the phone stating she forgot. Reminded patient on next appointment December 09 @4pm.
--- NOTE | 2021-12-15 15:29 | PCPTNOTE ---
Patient did not show up for scheduled appointment this date; called patient who stated she thought her appointments were only once a week. Requested to cancel upcoming appointments due to upcoming surgery (did not state what for) and would call once recovery was completed which she was unsure on timeline. Stated to patient with discharging her chart she will need a new order from MD to return.
--- NOTE | 2021-12-15 16:52 | PCPTNOTE ---
PHYSICAL THERAPY DISCHARGE NOTE Attending Provider: Kendra Herring MD Patient:Tiana Newton Date of :1995 Patient has not returned for any further treatments since 12/09/2021. Spoke with patient and she would like to d/c from PT at this time and possibly return in future if needed. She will be discharged at this time. Patient?s initial visit was on 11/24/2021 had a total of 2 visits. Thank you for referring this patient to [facility]. Please review, sign, date and return this discharge summary RANDELL. I have been updated about the patient's current status and I agree with discharge from the above service at this time. Referring Physician Date
== END 2021-12-16 08:35 | disposition home or self-care (01) ==
LOC: ANHPT 16:00
PROVIDERS: PCP Obstetrics & Gynecology; Visit Provider Obstetrics & Gynecology
DX: M54.50 Low back pain, unspecified (principal)
CPT/HCPCS: 97110; 97112; 97140; 97161

== ENCOUNTER 2022-07-06 01:23 | Day surgery (SDC) | payer OTHER, SELFPAY ==
[2022-06-30 15:12] VITALS: BMI 22.8
--- NOTE | 2022-06-30 15:17 | PC.NURSE ---
Report to the Outpatient Waiting Room, entrance under the green pavilion located off [facility], at time 0600 on date 07/06/22. Planned Procedure Time: 0730. Time changes happen often and if your time is changed the preop area will call you the afternoon before. - You and your visitor will be asked to self-screen and do not enter if you have any COVID symptoms. - Only one visitor is requested with a max of two and NO children visitors are allowed at this time. - The patient visitor may be requested to leave or wait in car when not with patient due to distancing restrictions. - A mask is REQUIRED within the hospital. Patients may have clear liquids (water, carbonated beverages, clear teas, apple juice) until 3 hours prior to surgery with a maximum of 20 ounces. - No food from midnight until time of surgery Take the following medications with a SIP of water the morning of surgery: N/A Medications to discontinue per physician: N/A Date to take last dose: N/A Please no make-up, nail tamazight, hairspray, perfume, deodorant, or body powder the day of surgery. No jewelry (including any body piercings) or valuables the day of surgery, leave them at home. Please take a shower or bath the night before, or the morning of, surgery with an antibacterial soap. Wear comfortable, loose fitting clothing. - Jewelry must be removed prior to entering the operating room. Rings and piercings that are not removed may be cut off. - The hospital will not accept responsibility for valuables. - Please leave all valuables, including medications, at home the day of surgery. If you are going home after surgery, a licensed solo truck driver must drive you home. - NO public transportation without another adult if you receive anesthesia. - We recommend that an adult stay with you for 24 hours following discharge. - We also recommend that you do not drive, make important decision, drink alcoholic beverages, or take any drugs that were not prescribed by your health care provider for at least 24 hours after your discharge time. Follow any additional instructions given to you from your surgeon. If you or anyone in your household have experienced Covid symptoms in the past week, please notify your surgeon or the nurse liaison at the phone number below for possible testing. Telephone instructions given to PT - GRACIELA JEFFERY and asked if any additional questions and then verbalized understanding. Patient advised to call surgeon office or pre surgery nurse liaison [phone] if any additional questions.
--- NOTE | 2022-07-05 12:29 | P.PNAN_ITS ---
Anes - Initial Pre Proc Eval Procedure: Operation Date: 07/06/22 07:30 Proposed Procedures p Suction Dilation and Curettage - Kendra Herring MD Date/Time: 07/05/22 12:29 Surgeon: Kendra Herring MD Pre Op Diagnosis: missed ab Patient Data Age: 27 Gender: F Height: 1.63 m Weight: 60.33 kg Allergies Allergy/AdvReac Type Severity Reaction Status Date / Time Penicillins Allergy Severe HIVES Verified 07/06/22 06:37 Home Medications Medication Instructions Recorded Confirmed Type No Home Medications 06/30/22 07/06/22 History Patient hx anesthesia problems: none Family hx anesthesia problems: none Results Review: All pre-operative results and documents have been reviewed as part of the pre- operative evaluation. [facility] Past Medical History Medical History Asthma Over weight Family History Family History Father Blindness due to degeneration of eye Mother High cholesterol Ovarian cyst Hypertension Diabetes mellitus Congenital heart disease Colon cancer Cervical cancer Anemia Asthma Grandparent High cholesterol Hypertension Congenital heart disease Colon cancer Asthma Social History Social History Smoking status: Never smoker Second hand tobacco smoke exposure: No Alcohol intake: current Alcohol use details: 1-2/MONTH (WHEN NOT ) Substance use: never Substance use type: does not use Living arrangements: with family Gender identity (if verbalized by the patient): Female Spiritual care concerns: No Anes - Eval Final PreProcedure Day of Procedure 07/05/22 12:29 Patient weight: normal Heart: regular rate and rhythm Lungs: clear to auscultation and normal air movement Airway: Mallampati scale class II Neurological: alert and oriented Last oral intake: >/= 8 hours ASA classification: II Emergent: no Anesthetic plan: proceed Anesthesia type and monitoring: general GIVS and standard monitoring Results Review: All pre-operative results and documents have been reviewed as part of the pre- operative evaluation. Informed Consent: The patient's anesthetic plan and its attendant risks and benefits were discussed with the patient/family/POA. Questions were solicited and answers provided to the satisfaction of the patient/family/POA.
[2022-07-06 06:26] VITALS: BP 109/63; PULSE 75; RESP 16; TEMP 36.8; O2SAT 100
[2022-07-06] MEDS: LACTATED RINGERS 1,000 ML 30 ML IV CONT (06:48)
[2022-07-06] MEDS: ACETAMINOPHEN 500 MG TABLET 1000 MG PO (06:48)
[2022-07-06] MEDS: DOXYCYCLINE 100 MG/NS 100 ML 100 MG/100 ML BAG IVPB (06:50)
--- NOTE | 2022-07-06 07:18 | PM.IMHP ---
H&P: HPI History of Present Illness Date/Time: 07/06/22 07:18 Chief Complaint: retained products of conception Narrative: Tiana is a here for D and C s/p elective medical termination on 05/20 per meds via internet. Bled off and on since then and US last week in office showed retained POC at fundus. Rh pos. hcg 128. Hgb 10.9. Review of Systems Review of Systems: All systems reviewed & are unremarkable except as noted in HPI and below PMFSH Past Medical History Medical History Asthma Over weight Family History Family History Father Blindness due to degeneration of eye Mother High cholesterol Ovarian cyst Hypertension Diabetes mellitus Congenital heart disease Colon cancer Cervical cancer Anemia Asthma Grandparent High cholesterol Hypertension Congenital heart disease Colon cancer Asthma Social History Social History Smoking status: Never smoker Second hand tobacco smoke exposure: No Alcohol intake: current Alcohol use details: 1-2/MONTH (WHEN NOT ) Substance use: never Substance use type: does not use Living arrangements: with family Gender identity (if verbalized by the patient): Female Spiritual care concerns: No Meds Home Medications and Allergies Home Medications Medication Instructions Recorded Confirmed Type No Home Medications 06/30/22 07/06/22 History Allergies Allergy/AdvReac Type Severity Reaction Status Date / Time Penicillins Allergy Severe HIVES Verified 07/06/22 06:37 Exam Const: General: no acute distress Resp: Effort & Inspection: normal respiratory effort Auscultation: clear to auscultation bilaterally Cardio: Rate: regular rate Rhythm: regular rhythm GI: GI Palp: Yes Soft to palpation Extrem: General: normal to inspection Assessment and Plan Assessment and plan (1) Retained products of conception after induced termination of : Code(s): O07.4 - Failed attempted termination of without complication Status: Acute Plan will proceed with suction D and C doxy consented after discussing RBA, questions answered diflucan for yeast after surgery.
--- NOTE | 2022-07-06 07:20 | WPDHPUPDATE1 ---
History and Physical Update Update Date/Time: 07/06/22 07:20 History and Physical has been reviewed, including an updated exam of the patient. There are NO changes in the patient's condition. Risks, benefits, and alternatives have been discussed and questions answered. Patient agrees to proceed with procedure.
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
[2022-07-06] MEDS: BUPIVACAINE/EPINEPHRINE 0.5% 30 ML VIAL 10 ML INFILTRATE (07:44)
--- NOTE | 2022-07-06 07:54 | W.PM.PROC2 ---
Procedure Note - Detailed Date of Procedure 07/06/22 Pre-op Diagnosis retained products of conception Post-op Diagnosis Same Procedure Performed suction D and C Surgeon Kendra Herring MD Anesthesia MAC Indications retained POC following medical termination of Description of Procedure The patient was taken to the OR and placed in supine position in dorsal lithotomy. She received MAC anesthesia and doxycycline. She was prepped and draped in normal fashion. A speculum was placed and the cervix was grasped with a single tooth tenaculum. A paracervical block was placed with 10cc 0.25% marcaine with epinephrine. The cervix was sequentially dilated to 8 hansen. The suction was tested and then the suction catheter was inserted into the uterine cavity. Several passes were made until no further products of conception were obtained. The tenaculum was removed and hemostasis was obtained with pressure and monsel's solution. The speculum was removed. The patient tolerated the procedure well and was taken to the recovery room in stable condition. Estimated Blood Loss 20 Drains No Packing No Pathology Yes Complications No immediate complications Condition Stable Disposition Same day
[2022-07-06 07:57] VITALS: BP 88/49; PULSE 70; RESP 14; O2SAT 100
[2022-07-06 08:25] VITALS: BP 94/60; PULSE 60; RESP 20
[2022-07-06] MEDS: FLUCONAZOLE 150 MG TABLET PO (08:38)
[2022-07-06 08:55] VITALS: BP 98/60; PULSE 58; RESP 20
[2022-07-06 09:10] VITALS: BP 102/65; PULSE 62; RESP 20
== END 2022-07-06 09:13 | disposition home or self-care (01) ==
PROVIDERS: Visit Provider Obstetrics & Gynecology
PROC: (CPT 59812; principal; 2022-07-06 07:30)
DX: O07.4 Failed attempted termination of pregnancy without complication (principal)
CPT/HCPCS: 59812; 88305; A9270; J1100; J2250; J2405; J2704; J3010; J7120

== ENCOUNTER 2022-08-24 00:31 | Day surgery (SDC) | payer OTHER, SELFPAY ==
[2022-08-13 14:22] VITALS: BMI 22.1
--- NOTE | 2022-08-13 14:32 | SUR.PREOP ---
Report to the Outpatient Waiting Room, entrance under the green pavilion located off [facility], at time _0600 on date _08/24/22 . Planned Procedure Time: _0730 . Time changes happen often and if your time is changed the preop area will call you the afternoon before. - You and your visitor will be asked to self-screen and do not enter if you have any COVID symptoms. - Only one visitor is requested with a max of two and NO children visitors are allowed at this time. - The patient visitor may be requested to leave or wait in car when not with patient due to distancing restrictions. - A mask is optional within the hospital at this time. Patients may have clear liquids (water, carbonated beverages, clear teas, apple juice) until 3 hours prior to surgery with a maximum of 20 ounces. - No food from midnight until time of surgery - Infants may have breast milk until 4 hours before surgery, formula 6 hours prior to surgery. - Children will be allowed to drink immediately following surgery. If applicable, please bring a bottle or sippy cup to assist with drinking. Juice, water, soda, and popsicles are readily available. For infants on formula, please bring formula the day of surgery. Pacifiers are allowed. Take the following medications with a SIP of water the morning of surgery: n/a DO NOT STOP ANY OF YOUR OTHER PRESCRIPTION MEDICATIONS PRIOR TO SURGERY ?EXCEPT THE FOLLOWING Medications to discontinue per physician n/a Date to take last dose__n/a Please no make-up, nail romansh, hairspray, perfume, deodorant, or body powder the day of surgery. No jewelry (including any body piercings) or valuables the day of surgery, leave them at home. Please take a shower or bath the night before, or the morning of, surgery with an antibacterial soap. Wear comfortable, loose fitting clothing. Children are encouraged to wear pajamas. - Jewelry must be removed prior to entering the operating room. Rings and piercings that are not removed may be cut off. - The hospital will not accept responsibility for valuables. - Please leave all valuables, including medications, at home the day of surgery. If you are going home after surgery, a licensed team otr truck driver must drive you home. - NO public transportation without another adult if you receive anesthesia. - We recommend that an adult stay with you for 24 hours following discharge. - We also recommend that you do not drive, make important decision, drink alcoholic beverages, or take any drugs that were not prescribed by your health care provider for at least 24 hours after your discharge time. For Pediatric surgeries, we recommend two adults accompany the child home. Follow any additional instructions given to you from your surgeon. If you or anyone in your household have experienced Covid symptoms in the past week, please notify your surgeon or the nurse liaison at the phone number below for possible testing. Telephone instructions given to _melina clark and asked if any additional questions and then verbalized understanding. Patient advised to call surgeon office or pre surgery nurse liaison [phone] if any additional questions.
--- NOTE | 2022-08-23 14:41 | P.PNAN_ITS ---
Anes - Initial Pre Proc Eval Procedure: Operation Date: 08/24/22 07:30 Proposed Procedures p Total Laparoscopic Hysterectomy with Bilateral Salpingectomy - Hazel Hong MD Date/Time: 08/23/22 14:41 Surgeon: Hazel Hong MD Pre Op Diagnosis: pelvic pain Patient Data Age: 27 Gender: F Height: 1.65 m Weight: 60.45 kg Allergies Allergy/AdvReac Type Severity Reaction Status Date / Time Penicillins Allergy Intermediate HIVES Verified 08/24/22 06:15 Home Medications Medication Instructions Recorded Confirmed Type norethindrone (contraceptive) 0.35 0.35 mg PO DAILY 08/13/22 08/24/22 History mg tablet Patient hx anesthesia problems: none Family hx anesthesia problems: none Results Review: All pre-operative results and documents have been reviewed as part of the pre-o perative evaluation. [facility], [facility] Past Medical History Medical History (Updated 08/23/22 @ 14:42 by Azael Carrillo MD) Asthma Endometriosis Family History Family History Father Blindness due to degeneration of eye Mother High cholesterol Ovarian cyst Hypertension Diabetes mellitus Congenital heart disease Colon cancer Cervical cancer Anemia Asthma Grandparent High cholesterol Hypertension Congenital heart disease Colon cancer Asthma Social History Social History Smoking status: Never smoker Second hand tobacco smoke exposure: No Alcohol intake: current Alcohol use details: 1 drink a month Substance use: never Substance use type: does not use Living arrangements: with family Gender identity (if verbalized by the patient): Female Spiritual care concerns: No Anes - Eval Final PreProcedure Day of Procedure 08/23/22 14:41 Patient weight: normal Heart: regular rate and rhythm Lungs: clear to auscultation and normal air movement Airway: Mallampati scale class II Neurological: alert and oriented Last oral intake: >/= 8 hours ASA classification: II Emergent: no Anesthetic plan: proceed Anesthesia type and monitoring: general ETT and standard monitoring Results Review: All pre-operative results and documents have been reviewed as part of the pre- operative evaluation. Informed Consent: The patient's anesthetic plan and its attendant risks and benefits were discussed with the patient/family/POA. Questions were solicited and answers provided to the satisfaction of the patient/family/POA.
[2022-08-24] VITALS (11 sets, daily range): BP systolic 92–120; BP diastolic 57–75; PULSE 53–85; RESP 12–18; TEMP 36.6–37; O2SAT 96–100
[2022-08-24] MEDS: ACETAMINOPHEN 500 MG TABLET 1000 MG PO (06:19)
[2022-08-24] MEDS: KETOROLAC 15 MG/ML VIAL (*BKC) IV PUSH (06:48)
[2022-08-24] MEDS: LACTATED RINGERS 1,000 ML 30 ML IV CONT ×2 (06:48→09:52)
--- NOTE | 2022-08-24 07:55 | WPDHPUPDATE1 ---
History and Physical Update Update Date/Time: 08/24/22 07:55 History and Physical has been reviewed, including an updated exam of the patient. There are NO changes in the patient's condition. Risks, benefits, and alternatives have been discussed and questions answered. Patient agrees to proceed with procedure.
[2022-08-24] MEDS: ceFAZolin 2 GM/D5W 50 ML 2 GM/50 ML BAG IVPB (08:04)
[2022-08-24] MEDS: ceFAZolin SODIUM 1 GM VIAL (09:11)
[2022-08-24] MEDS: oxyCODONE HCL (*CRX) 5 MG TAB IR PO (10:03)
--- NOTE | 2022-08-24 10:04 | W.PM.PROC2 ---
Procedure Note - Detailed Date of Procedure 08/24/22 Pre-op Diagnosis pelvic pain Post-op Diagnosis Same Procedure Performed Total laparoscopic hysterectomy. Surgeon Hazel Hong MD Anesthesia General Description of Procedure This patient was taken to the operating room. She was prepped and draped in the dorsal lithotomy position after induction of general anesthesia. The uterine manipulator and Jason cup were placed. This was done with a speculum and tenaculum. The speculum was placed. The cervix was grasped with a tenaculum. The stay sutures were placed at 3 and 9:00 a.m.. The stay sutures of 0 Vicryl were brought through the appropriately sized Jason cup. The tip of the DAVID manipulator was placed in the intrauterine cavity. The cup was slid into place around the cervix and into the fornices. It was locked into place. The sutures were then wrapped around the handle and tied under tension. A 5 mm skin incision was made in the left upper quadrant the abdomen. A 5 mm trocar was inserted into the intrauterine cavity under direct visualization of the scope. Pneumoperitoneum was achieved. A left lower quadrant 11 mm incision was made with scalpel. An 11 mm trocar was inserted into the anterior abdominal cavity under direct visualization the scope. A 5 mm infraumbilical incision was made with a scalpel and a 5 mm trocar was inserted the intra-abdominal cavity under direct visualization of the scope. Bilateral ureteral lysis was performed. This was done from the pelvic brim down to the uterine artery. This was done with careful dissection using sharp and blunt dissection. The fallopian tubes were removed bilaterally. The mesosalpinx around the fallopian tubes were cauterized transected with LigaSure cautery. This was done in a bilateral fashion from the ovary to the uterine cornua. The fallopian tube was transected at the uterine cornu and amputated. The tube was taken out the left lower quadrant trocar site. In a stepwise fashion along the lateral aspects of the uterus the round ligament and broad ligaments were cauterized transected down to the level of the uterine arteries. A bladder flap was created in the bladder was moved distally to the end of the cervix and over the Jason cup. The bilateral uterine arteries were cauterized and transected. Colpotomy was then performed. In a circumferential fashion the vagina was transected using unipolar cautery. The incision was made down on the Jason cup. The uterus and cervix were taken out through the vagina. A pneumo occluder was placed in the vagina. The vaginal cuff was closed with a 0 V lock suture in a running fashion. The pelvis was irrigated with copious amounts antibiotic irrigation. The ureters were again examined and found to be intact and flowing freely under the uterine arteries into the bladder. The bladder was intact. It was examined directly. The vagina was irrigated with Betadine solution after removal of the Pneumo occluder. The patient was taken to recovery room. She was stable condition. Sponge lap and needle counts were correct x2. Estimated Blood Loss -50.0 Urine Output -25.0 Drains Yes Packing No Pathology Yes Complications No immediate complications Condition Stable Disposition Floor
[2022-08-24] MEDS: fentaNYL CITRATE INJ (*CRX) 100 MCG/2 ML VIAL 25 MCG IV PUSH ×6 (10:05→10:26)
--- NOTE | 2022-08-24 11:18 | PC.NURSE ---
This patient, Tiana Newton, was received from PACU on 08/24/22 at 1118. Patient/family oriented to unit policies and routines
[2022-08-24] MEDS: DEXTROSE 5%/0.45% SOD CHL 1,000 ML 125 ML IV CONT (11:36)
[2022-08-24] MEDS: PROPARACAINE HCL 0.5% 15 ML OPHTH SOLN 1 DROP EACH EYE (15:27)
[2022-08-24] MEDS: KETOROLAC 30 MG/ML VIAL (*BKC) IV PUSH ×2 (15:37→22:42)
[2022-08-24] MEDS: SIMETHICONE 80 MG TAB.CHEW (18:11)
[2022-08-24] MEDS: DICLOFENAC SODIUM 0.1% OPHTH SOLN 2.5 ML BOTTLE 1 DROP EACH EYE (22:42)
[2022-08-24] MEDS: SIMETHICONE 80 MG TAB.CHEW PO (22:42)
[2022-08-25] MEDS: HYDROcodone/acetaminophen (*CRX) 5-325 MG TABLET 1 TAB PO ×2 (04:25→09:05)
[2022-08-25 04:28] VITALS: BP 101/56; PULSE 79; RESP 16; TEMP 36.7; O2SAT 100
[2022-08-25 07:55] VITALS: BP 94/61; PULSE 66; RESP 16; TEMP 37.6; O2SAT 99
--- NOTE | 2022-08-25 09:02 | WPDANESPN ---
Anes - Prog Note Post-Op Date/Time: 08/25/22 09:02 Cardiovascular status: normal Respiratory status: normal Airway patency: baseline Mental status: baseline Post-Op hydration status: normal Vital Signs: Last Vital Signs Temp 36.7 C 08/25/22 04:28 Pulse 79 08/25/22 04:28 Resp 16 08/25/22 04:28 BP 101/56 L 08/25/22 04:28 Pulse Ox 100 08/25/22 04:28 O2 Del Method Room Air 08/25/22 04:28 O2 Flow Rate 6 08/24/22 10:05 Pain Score (VAS): 2/10 I/O: Intake & Output 08/24/22 08/25/22 08/25/22 23:59 07:59 15:59 Intake Total 1240 200 Output Total 950 Balance 290 200 Post-procedural complaints: none Patient Feedback: Patient satisfied with anesthetic care.
[2022-08-25] MEDS: IBUPROFEN 600 MG TABLET PO (09:06)
--- NOTE | 2022-08-25 09:37 | PM.OBPNVD ---
OB - PN: Subj Subjective Date/time seen: 08/25/22 09:37 OB - PN A/P Time Spent With Patient Time: Total time spent is greater than 50% in coordination of care (as documented) at patient's floor/unit and/or counseling patient: Exam Const: General: healthy appearing, comfortable and no acute distress Resp: Auscultation: clear to auscultation bilaterally, no rales, no rhonchi and no wheezes Cardio: Rate: regular rate Heart sounds: no click, no murmurs and no rubs GI: Inspection: non-distended Auscultation: normal bowel sounds Extrem: General: normal to inspection, no pedal edema and no calf tenderness
== END 2022-08-25 10:23 | disposition home or self-care (01) ==
LOC: ANHSURGERY 06:08 → ANHOB2 11:16
PROVIDERS: Visit Provider Obstetrics & Gynecology
PROC: 0UT9FZZ Resection of Uterus, Via Natural or Artificial Opening With Percutaneous Endoscopic Assistance (ICD-10-PCS; CPT 58571; principal; 2022-08-24 07:30)
DX: N72 Inflammatory disease of cervix uteri (principal); N83.8 Other noninflammatory disorders of ovary, fallopian tube and broad ligament; N83.201 Unspecified ovarian cyst, right side; R10.2 Pelvic and perineal pain
CPT/HCPCS: 58571; 36415; 86850; 86900; 86901; 88302; 88307; 99199; A9270; J0690; J1100; J1170; J1885; J2250; J2405; J2704; J2710; J3010; J7030; J7120

== ENCOUNTER 2022-09-02 19:13 | Emergency (ER) | payer OTHER, SELFPAY ==
[2022-09-02 19:49] VITALS: BP 100/72; PULSE 98; RESP 18; TEMP 36.8; O2SAT 98
--- NOTE | 2022-09-02 20:38 | PC.NURSE ---
patient states wit is too long and left from waiting area
== END 2022-09-02 20:46 | disposition left against medical advice (07) ==
DX: R10.32 Left lower quadrant pain (principal)
CPT/HCPCS: 99199

== ENCOUNTER 2023-04-21 00:39 | Day surgery (SDC) | payer OTHER, SELFPAY ==
[2023-04-14 15:21] VITALS: BMI 21.2
--- NOTE | 2023-04-14 15:24 | PC.NURSE ---
Report to the Outpatient Waiting Room, entrance under the green pavilion located off [facility], at time 0900 on date 04/21/23. Planned Procedure Time: 1100. Time changes happen often and if your time is changed the preop area will call you the afternoon before. - You and your visitor will be asked to self-screen and do not enter if you have any COVID symptoms. - A mask is optional within the hospital at this time. Patients may have clear liquids (water, carbonated beverages, clear teas, apple juice) until 3 hours prior to surgery with a maximum of 20 ounces. - No food from midnight until time of surgery Take the following medications with a SIP of water the morning of surgery: N/A DO NOT STOP ANY OF YOUR OTHER PRESCRIPTION MEDICATIONS PRIOR TO SURGERY ?EXCEPT THE FOLLOWING Medications to discontinue per physician: N/A Date to take last dose: N/A Please no make-up, nail bengali, hairspray, perfume, deodorant, or body powder the day of surgery. No jewelry (including any body piercings) or valuables the day of surgery, leave them at home. Please take a shower or bath the night before, or the morning of, surgery with an antibacterial soap. Wear comfortable, loose fitting clothing. - Jewelry must be removed prior to entering the operating room. Rings and piercings that are not removed may be cut off. - The hospital will not accept responsibility for valuables. - Please leave all valuables, including medications, at home the day of surgery. If you are going home after surgery, a licensed patient transportation driver must drive you home. - NO public transportation without another adult if you receive anesthesia. - We recommend that an adult stay with you for 24 hours following discharge. - We also recommend that you do not drive, make important decision, drink alcoholic beverages, or take any drugs that were not prescribed by your health care provider for at least 24 hours after your discharge time. Follow any additional instructions given to you from your surgeon. If you or anyone in your household have experienced Covid symptoms in the past week, please notify your surgeon or the nurse liaison at the phone number below for possible testing. Telephone instructions given to PT - GRACIELA JEFFERY and asked if any additional questions and then verbalized understanding. Patient advised to call surgeon office or pre surgery nurse liaison [phone] if any additional questions.
[2023-04-21] VITALS (9 sets, daily range): BP systolic 104–122; BP diastolic 65–86; PULSE 57–89; RESP 12–20; TEMP 36.1–36.9; O2SAT 98–100; BMI 22.4
[2023-04-21] MEDS: LACTATED RINGERS 1,000 ML 30 ML IV CONT ×2 (10:10→12:13)
--- NOTE | 2023-04-21 10:38 | WPDHPUPDATE1 ---
History and Physical Update Update Date/Time: 04/21/23 10:38 History and Physical has been reviewed, including an updated exam of the patient. There are NO changes in the patient's condition. Risks, benefits, and alternatives have been discussed and questions answered. Patient agrees to proceed with procedure.
--- NOTE | 2023-04-21 10:39 | WPDANESEPPF ---
Anes - Initial Pre Proc Eval Procedure: Operation Date: 04/21/23 11:00 Proposed Procedures p Bilateral Breast Augmentation - Patrick Villalta MD Date/Time: 04/21/23 10:39 Surgeon: Patrick Villalta MD Pre Op Diagnosis: Micromastia Patient Data Age: 28 Gender: F Height: 1.63 m Weight: 59.3 kg Last Vital Signs Temp 36.9 C 04/21/23 09:15 Pulse 57 L 04/21/23 09:15 Resp 16 04/21/23 09:15 BP 112/75 04/21/23 09:15 Pulse Ox 100 04/21/23 09:15 O2 Del Method Room Air 04/21/23 09:15 Allergies Allergy/AdvReac Type Severity Reaction Status Date / Time Penicillins Allergy Intermediate HIVES Verified 04/21/23 09:58 Home Medications Medication Instructions Recorded Confirmed Type No Home Medications 04/14/23 04/14/23 History Patient hx anesthesia problems: none and other (motion sickness) Family hx anesthesia problems: none Results Review: All pre-operative results and documents have been reviewed as part of the pre-operative evaluation. [facility] Past Medical History Medical History Asthma Endometriosis Family History Family History Father Blindness due to degeneration of eye Mother High cholesterol Ovarian cyst Hypertension Diabetes mellitus Congenital heart disease Colon cancer Cervical cancer Anemia Asthma Grandparent High cholesterol Hypertension Congenital heart disease Colon cancer Asthma Social History Social History Smoking status: Never smoker Second hand tobacco smoke exposure: No Alcohol intake: never Alcohol use details: 1 drink a month Substance use: never Substance use type: does not use Living arrangements: with family Gender identity (if verbalized by the patient): Female Spiritual care concerns: No Anes - Eval Final PreProcedure Day of Procedure 04/21/23 10:39 Patient weight: normal Heart: regular rate and rhythm Lungs: clear to auscultation Airway: Mallampati scale class II Neurological: alert and oriented Last oral intake: >/= 8 hours ASA classification: I Emergent: no Anesthetic plan: proceed Anesthesia type and monitoring: general LMA and standard monitoring Results Review: All pre-operative results and documents have been reviewed as part of the pre-operative evaluation. Informed Consent: The patient's anesthetic plan and its attendant risks and benefits were discussed with the patient/family/POA. Questions were solicited and answers provided to the satisfaction of the patient/family/POA.
[2023-04-21] MEDS: SCOPOLAMINE 1.5 MG PATCH TRANSDERM (10:53)
--- NOTE | 2023-04-21 10:56 | W.PM.PROC2 ---
Procedure Note - Detailed Date of Procedure 04/21/23 Pre-op Diagnosis Micromastia Post-op Diagnosis Same Procedure Performed Bilateral augmentation mammaplasty Surgeon Patrick Villalta MD Anesthesia General Findings Bilateral Jeanine Rodriguez SoftTouch 415cc Right - REF# [id number] SN [id number] Left - REF# [id number] SN [id number] Description of Procedure She is here today for bilateral breast augmentation. Previously and again today the risks, benefits, alternatives were discussed in extensive detail. I wanted her to be very realistic about the risks involved as well as expectations. We discussed aftercare and what to monitor for. Made sure answered all of her questions to her satisfaction today and consent was obtained. Marked in the preoperative holding area with their verification. The patient was taken to the operating room placed supine on the operating table. Anesthesia was provided by anesthesiology. A surgical time-out was taken. We cleansed the skin and 1% lidocaine and 0.25% Marcaine with epinephrine was used anesthetize as a field block. She was prepped and draped in a standard sterile fashion. Tegaderm nipple Walker were placed. A 15 blade used to make an incision along the inframammary fold. Dissection was continued at 45 degree angle until the chest wall as identified. I incised the pectoralis major along its inferior border and completely released the inferior border leaving the medial border intact. I created a subpectoral pocket in the appropriate dimensions based on our preoperative planning for the implant. I then copiously irrigated with saline solution and verified a strict hemostasis. Next the use a triple antibiotic and Betadine containing solution to irrigate the pocket. I washed my gloves with the triple antibiotic and Betadine solution. We washed the implant immediately upon opening it with this solution and only opened it when we needed it. I used implant funnel and no-touch technique. The implant was introduced into the pocket using the funnel. Having verified positioning of the implant this was closed using 2-0 PDS followed by 3-0 Monocryl in a running subcuticular 4-0 Monocryl followed by tissue glue. Fluffs and surgical bra were placed. Patient was awoke and taken to PACU without difficulty. All instrument sponge counts were correct at the end of the case. Estimated Blood Loss 25 Drains No Packing No Pathology None sent Complications No immediate complications Condition Stable Disposition PACU
[2023-04-21] MEDS: NACL 0.9% IRRIG POUR BOTTLE 900 ML, GENTAMICIN SULFATE INJ 160 MG, CLINDAMYCIN PHOS INJ... IRRIGATION (11:09)
[2023-04-21] MEDS: TRANEXAMIC ACID 1,000MG/ISO100 1,000 MG/100 ML BAG 200 MG IVPB (11:09)
[2023-04-21] MEDS: ceFAZolin 2 GM/D5W 50 ML 2 GM/50 ML BAG IVPB (11:09)
[2023-04-21] MEDS: LIDO 1%/EPINEPHRINE 1:100,000 50 ML VIAL 60 ML INFILTRATE (12:24)
[2023-04-21] MEDS: HYDROmorphone HCL INJ (*CRX) 1 MG/ML SYR 0.5 MG IV PUSH ×2 (12:29→12:37)
[2023-04-21] MEDS: ONDANSETRON INJ 4 MG/2 ML VIAL IV PUSH (12:34)
[2023-04-21] MEDS: diphenhydrAMINE HCl INJ 50 MG/ML VIAL 25 MG IV PUSH (13:32)
[2023-04-21] MEDS: oxyCODONE HCL (*CRX) 5 MG TAB IR PO (14:16)
== END 2023-04-21 14:40 | disposition home or self-care (01) ==
PROVIDERS: Visit Provider Surgery Plastic and Reconstructive Surgery
PROC: (CPT 19325; principal; 2023-04-21 11:00)
DX: Z41.1 Encounter for cosmetic surgery (principal); J45.909 Unspecified asthma, uncomplicated; N80.9 Endometriosis, unspecified; Z87.891 Personal history of nicotine dependence; Z82.49 Family history of ischemic heart disease and other diseases of the circulatory system
CPT/HCPCS: 19325; A9270; J0690; J1100; J1170; J1200; J1580; J2250; J2405; J2704; J3010; J7120

== ENCOUNTER 2023-06-07 05:59 | Emergency (ER) | payer OTHER, SELFPAY ==
[2023-06-07 06:01] VITALS: BP 115/89; PULSE 62; RESP 18; TEMP 36.4; O2SAT 100
== END 2023-06-07 07:10 | disposition left against medical advice (07) ==
LOC: ANHED 06:52
DX: R10.9 Unspecified abdominal pain (principal)
CPT/HCPCS: 99199

== ENCOUNTER 2023-07-27 09:48 | Day surgery (SDC) | payer OTHER, SELFPAY ==
[2023-07-08 10:58] VITALS: BMI 21.2
[2023-07-27] VITALS (9 sets, daily range): BP systolic 95–117; BP diastolic 50–81; PULSE 63–85; RESP 14–18; TEMP 36.1–37.1; O2SAT 97–100; BMI 22.0
[2023-07-27] MEDS: LACTATED RINGERS 1,000 ML 30 ML IV CONT ×2 (11:00→13:01)
--- NOTE | 2023-07-27 11:33 | P.PNAN_ITS ---
Anes - Initial Pre Proc Eval Procedure: Operation Date: 07/27/23 12:00 Proposed Procedures p Right Breast Implant Exchange, Possible Capsulectomy - Patrick Villalta MD Date/Time: 07/27/23 11:33 Surgeon: Patrick Villalta MD Pre Op Diagnosis: History of Breast Augmentation Patient Data Age: 28 Gender: F Height: 1.65 m Weight: 60 kg Last Vital Signs Temp 37.1 C 07/27/23 10:33 Pulse 64 07/27/23 10:33 Resp 16 07/27/23 10:33 BP 106/77 07/27/23 10:33 Pulse Ox 100 07/27/23 10:33 O2 Del Method Room Air 07/27/23 10:33 Allergies Allergy/AdvReac Type Severity Reaction Status Date / Time Penicillins Allergy Intermediate HIVES Verified 07/27/23 10:14 Home Medications Medication Instructions Recorded Confirmed Type No Home Medications 04/14/23 07/27/23 History Patient hx anesthesia problems: post op nausea/vomiting Family hx anesthesia problems: none Results Review: All pre-operative results and documents have been reviewed as part of the pre- operative evaluation. [facility] Past Medical History Medical History Asthma Endometriosis Family History Family History Father Blindness due to degeneration of eye Mother High cholesterol Ovarian cyst Hypertension Diabetes mellitus Congenital heart disease Colon cancer Cervical cancer Anemia Asthma Grandparent High cholesterol Hypertension Congenital heart disease Colon cancer Asthma Social History Social History Smoking status: Never smoker Second hand tobacco smoke exposure: No Alcohol intake: never Alcohol use details: 1 drink a month Substance use: never Substance use type: does not use Living arrangements: with family Gender identity (if verbalized by the patient): Female Spiritual care concerns: No Anes - Eval Final PreProcedure Day of Procedure 07/27/23 11:33 Patient weight: normal Heart: regular rate and rhythm Lungs: clear to auscultation Airway: Mallampati scale class II Neurological: alert and oriented Last oral intake: >/= 8 hours ASA classification: II Emergent: no Anesthetic plan: proceed Anesthesia type and monitoring: general LMA and standard monitoring Results Review: All pre-operative results and documents have been reviewed as part of the pre- operative evaluation. Informed Consent: The patient's anesthetic plan and its attendant risks and benefits were discussed with the patient/family/POA. Questions were solicited and answers provided to the satisfaction of the patient/family/POA.
--- NOTE | 2023-07-27 11:34 | SUR.PREOP ---
FEMALE RN IN ROOM WHILE DR ESTRADA MARKED PT.
--- NOTE | 2023-07-27 11:35 | P.OP_ITS ---
Procedure Note - Detailed Date of Procedure 07/27/23 Pre-op Diagnosis History of Breast Augmentation Post-op Diagnosis Same Procedure Performed Right breast implant exchange Surgeon Patrick Villalta MD Anesthesia General Indications Bilateral postoperative asymmetry that is persistent. She prefers the appearan ce of the left breast and would like to modify the right. Findings Previous right implant SSF-415 - intact New right implant: Jeanine Rodriguez SoftTouch SSF-415 SN [id number] Description of Procedure Preoperatively the risks, benefits, alternatives were discussed in extensive detail. I wanted to be very realistic about the risks involved as well as expectations. I was clear about how we could actually make her worse. Answered all questions to satisfaction. Voiced a clear understanding. Consent obtained. She was taken the operating room placed supine on the operating room table. Anesthesia provided by anesthesiology and prepped and draped in a standard sterile fashion. Surgical time-out was taken. 1% lidocaine and 0.25% Marcaine with epinephrine was used to provide a field block. Tegaderm nipple coulter were placed. Fifteen blade used to excise the previous right IMF scar. Dissection was continued down until the capsules were identified and excised a significant portion of the inferior capsule. She preferred the left IMF location more than the right (which was elevated) so dissection was continued inferior to the level of the adjusted IMF. At this location I used 2-0 PDO Quill to secure the fold. The previous (old) implant was introduced (for use as a sizer) and she was placed in a sitting position to verify. I then placed her supine and removed the old implant. I then copiously irrigated with 3 L of saline solution on TUR tubing. Verified strict hemostasis. I then irrigated with Betadine containing solution. Using a no-touch technique and a Cespedes funnel the implant was introduced into the pocket. This was closed with 2-0 PDS followed by 3-0 Monocryl and a running subcuticular 4-0 Monocryl followed by tissue glue. Dressings were placed. She was woken taken to the PACU without difficulty. All instrument sponge counts were correct at the end of the case. Estimated Blood Loss 25 Drains No Packing No Pathology None sent Complications No immediate complications Condition Stable Disposition PACU
--- NOTE | 2023-07-27 11:35 | WPDHPUPDATE1 ---
History and Physical Update Update Date/Time: 07/27/23 11:35 History and Physical has been reviewed, including an updated exam of the patient. There are NO changes in the patient's condition. Risks, benefits, and alternatives have been discussed and questions answered. Patient agrees to proceed with procedure.
[2023-07-27] MEDS: SCOPOLAMINE 1 MG PATCH 1 PATCH TRANSDERM (11:37)
[2023-07-27] MEDS: ceFAZolin SODIUM 2 GM/20 ML SW SYRINGE IV PUSH (11:53)
[2023-07-27] MEDS: LIDO 1%/EPINEPHRINE 1:100,000 20 ML VIAL 15 ML INFILTRATE (12:03)
[2023-07-27] MEDS: NACL 0.9% IRRIG POUR BOTTLE 900 ML, GENTAMICIN SULFATE INJ 160 MG, ceFAZolin 2 GM, POVI... IRRIGATION (12:26)
--- NOTE | 2023-07-27 13:49 | WPDANESPN ---
Anes - Prog Note Post-Op Date/Time: 07/27/23 13:49 Cardiovascular status: normal Respiratory status: normal Airway patency: baseline Mental status: baseline Post-Op hydration status: normal Vital Signs: Last Vital Signs Temp 36.1 C L 07/27/23 13:01 Pulse 63 07/27/23 13:45 Resp 18 07/27/23 13:45 BP 107/78 07/27/23 13:45 Pulse Ox 100 07/27/23 13:45 O2 Del Method Room Air 07/27/23 13:45 O2 Flow Rate 5 07/27/23 13:11 Pain Score (VAS): 2 I/O: Intake & Output 07/26/23 07/27/23 07/27/23 23:59 07:59 15:59 Intake Total 1000 Balance 1000 Patient Feedback: Patient satisfied with anesthetic care.
[2023-07-27] MEDS: oxyCODONE HCL (*CRX) 5 MG TAB IR PO (14:18)
== END 2023-07-27 14:30 | disposition home or self-care (01) ==
PROVIDERS: Visit Provider Surgery Plastic and Reconstructive Surgery
PROC: (CPT 19342; principal; 2023-07-27 12:00)
DX: N64.89 Other specified disorders of breast (principal); Z41.1 Encounter for cosmetic surgery
CPT/HCPCS: 19342